=== PATIENT | male | born 1990 | race African-American/Black ===

== ENCOUNTER 2016-05-03 19:03 | Emergency (ER) ==
--- NOTE | 2016-05-03 21:36 | PROVIDER DOCUMENTATION ---
HPI-Cardiac General <Melina Hernandez - Last Filed: 05/03/16 22:21> - General Source: patient <Abdoul Shaw - Last Filed: 05/04/16 01:47> - General Chief Complaint: B/P Problems Stated Complaint: HIGH BP Time Seen by Provider: 05/03/16 21:02 Allergies/Adverse Reactions: Patient Allergies Allergy/AdvReac Type Severity Reaction Status Date / Time No Known Allergies Allergy Verified 05/03/16 21:34 Home Medications: Home Medication List Medication Instructions Recorded Confirmed Last Taken Type Ibuprofen [Motrin] 800 mg PO Q8H PRN PRN #20 tablet 05/03/16 Unknown Rx Omeprazole [Prilosec] 20 mg PO DAILY@0700 #20 capsule 05/03/16 Unknown Rx - History of Present Illness-Cardiac Nature of Presenting Problem: Pt is a 26 y/o M c chief complaint of anxiety and hypertension. pt states that he has a h/o anxiety attacks and gets htn when he is anxious. On arrival, pt states he is now more calm and feels normo-tensive. (Abdoul Shaw) Review of Systems - Adult - REVIEW OF SYSTEMS - ADULT Constitutional: reports: no symptoms reported. denies: chills, fatique Eyes: reports: no symptoms reported. denies: blurred vision, double vision Ears, Nose, Mouth & Throat: reports: no symptoms reported. denies: ear pain, nose pain, throat pain Cardiovascular: reports: no symptoms reported. denies: chest pain, orthopnea Respiratory: reports: no symptoms reported. denies: cough, shortness of breath Gastrointestinal: reports: no symptoms reported. denies: abdominal pain, nausea Genitourinary: reports: no symptoms reported. denies: dysuria, hematuria Musculoskeletal: reports: no symptoms reported. denies: joint pain, joint swelling Integumentary: reports: no symptoms reported. denies: itching, rash Neurological: reports: no symptoms reported. denies: numbness, paresthesia Psychiatric: reports: no symptoms reported. denies: anxiety, emotional problems Endocrine: reports: no symptoms reported. denies: cold intolerance, heat intolerance Hematologic/Lymphatic: reports: no symptoms reported. denies: blood clots, low blood count Allergic/Immunologic: reports: no symptoms reported. denies: allergic reactions , food allergy All Other Systems: Reviewed and Negative <Abdoul Shaw - Last Filed: 05/04/16 01:47> Past History - Adult - PAST MEDICAL HISTORY-ADULT Review of Records: reports: Old Records Reviewed, Nursing Assessment Review, Medications Reviewed, Social history reviewed & non-contributory. Major Childhood Illnesses: reports: denies history Cardiovascular: reports: denies history Respiratory: reports: denies history Gastrointestinal: reports: denies history Obstetrical/Gynecological: reports: denies history Genitourinary: reports: denies history Musculoskeletal: reports: denies history Neurological: reports: denies history Psychiatric: reports: anxiety Endocrine/Immune: reports: denies history Other Conditions: reports: denies history - IMMUNIZATION STATUS Childhood Immunizations: See Nurse Assessment Flu Vaccine: See Nurse Assessment - FAMILY HISTORY Family History: reviewed, not pertinent - SOCIAL HISTORY Smoking: denies Substance Use: none/never Alcohol Use Frequency: never Living Situation: family <Abdoul Shaw - Last Filed: 05/04/16 01:47> Physical Exam-General - PHYSICAL EXAM-ADULT Initial Vital Signs Reviewed: Yes - CONSTITUTIONAL General Appearance: appears well, alert, no apparent distress - EYES Eyes: PERRL/EOMI, pink conjunctivae - HEAD, EARS, NOSE, MOUTH & THROAT HENMT: normocephalic/atraumatic, moist mucous membranes, normal ENT inspection - NECK Neck: non-tender - RESPIRATORY Respiratory: chest non-tender, lungs clear, normal breath sounds - CARDIOVASCULAR Cardiovascular: normal peripheral pulses, regular rate, rhythm, no edema - GASTROINTESTINAL (ABDOMEN) Abdominal Exam: normal bowel sounds, non tender, soft - LYMPHATIC Lymphatic: no adenopathy - MUSCULOSKELETAL Back Exam: normal inspection, no CVA tenderness, no vertebral tenderness Extremity: normal range of motion, non-tender, normal gait - SKIN Integumentary: normal color, normal turgor, warm/dry - NEUROLOGIC Neurologic: grossly normal, no motor/sensory deficits - PSYCHIATRIC Psych/Mental Status: normal mood/affect, normal thought content, normal thought process, oriented x 3 <Abdoul Shaw - Last Filed: 05/04/16 01:47> Progress - EKG 1 Time of EKG reading by physician:: 22:08 EKG Read and Signed by:: José Botello EKG Interpretation (*Must complete 3 of following elements*): Normal Rate: 70 Rhythm: NSR Babbitt: normal <DavidMelina arrington - Last Filed: 05/03/16 22:21> <Abdoul Shaw - Last Filed: 05/04/16 01:47> - PLAN OF CARE/RESULTS Progress/Plan/Lab Results: Orders Category Date Time Status ED: Orthostatic Vital Signs (E as directed Care 05/03/16 21:31 Active CHEST-2 VIEWS [RAD] Stat Exams 05/03/16 21:35 Taken EKG [EKG] Stat Ther 05/03/16 21:31 Ordered Vital Signs - 24 hr 05/03/16 19:13 Temperature 98.2 F Pulse Rate 109 H Respiratory 18 Rate Blood Pressure 141/76 O2 Sat by Pulse 100 Oximetry (Abdoul Shaw) Departure <DavidMelina - Last Filed: 05/03/16 22:21> - Departure Time of Disposition Order: 22:12 Certified Medical Emergency: Emergent <Abdoul Shaw - Last Filed: 05/04/16 01:47> - Departure DIAGNOSIS: Episode of hypertension Headache Qualifiers: Headache type: unspecified Headache chronicity pattern: unspecified pattern Intractability: not intractable Qualified Code(s): R51 - Headache Disposition: HOME 01 Condition: Stable Additional Instructions: ED Follow Up Instructions: You have been treated by a care provider in the Emergency Department. These instructions are being provided to you so you can have an understanding of how to care for yourself upon discharge. Upon discharge from the Emergency Department, you are responsible for making arrangements for follow-up care by a physician of your choice. Take all prescribed medications as directed. Return to the Emergency Department immediately for any new or worsening symptoms. You may call the Physician Referral phone number at [phone] to obtain a list of Physicians who are taking new patients. Prescriptions: Ibuprofen [Motrin] 800 mg PO Q8H PRN PRN #20 tablet PRN Reason: inflammation Omeprazole [Prilosec] 20 mg PO DAILY@0700 #20 capsule Referrals: None,PCP [Primary Care Provider] - Forms: Return to School/Parent Work Instructions: Migraine Headache, [id number] Attestation - Physician/ [place] Attestation Patient care was provided by Advanced Practice Provider:: Yes Advanced Practice Provider:: Abdoul Shaw Advanced Practice Provider documentation review:: The Mid-level provider documentation, treatment plan and medical decision making was reviewed by the physician who agrees with all treatment and medical decision making by the MLP. <Abdoul Shaw - Last Filed: 05/04/16 01:47> Physician Attestation - Physician Attestation I, the provider, attest to the following statement:: Abdoul Shaw Physician documentation Attestation:: This documentation recorded by the scribe accurately reflects the service I personally performed and the decisions made by me. <Abdoul Shaw - Last Filed: 05/04/16 01:47>
[2016-05-03] MEDS ORDERED: MOTRIN PO ONE (22:11)
[2016-05-03 22:20] VITALS: BP 122/73
--- NOTE | 2016-05-04 05:31 | EKG Report ---
Test Performed on : 05/03/2016 10:08:41 PM Test Reason : HTN Blood Pressure : / mmHG Vent. Rate : 070 BPM Atrial Rate : 070 BPM P-R Int : 198 ms QRS Dur : 086 ms QT Int : 372 ms P-R-T Axes : 066 033 012 degrees QTc Int : 401 ms Normal sinus rhythm. Normal ECG When compared with ECG of 18-FEB-2015 16:54, No significant change was found Unconfirmed Result
--- NOTE | 2016-05-04 08:09 | Diag Imaging Result Document ---
PROCEDURE NAME: CHEST-2 VIEWS - 05/03/2016 CHEST X-RAY, 2 VIEWS: COMPARISON: None. FINDINGS: The lungs are normally expanded and clear. Heart size and mediastinal contours are normal. No pneumothorax or pleural effusion. IMPRESSION: Negative exam.
== END 2016-05-03 22:34 | disposition home or self-care (01) ==
LOC: ED 19:03
DX: I10 Essential (primary) hypertension (principal); R51 Headache
CPT/HCPCS: 71020; 93005